=== PATIENT | male | born 1965 | race Caucasian/White ===

== ENCOUNTER → 2016-12-11 | Outpatient (CLI) | payer OTHER | LOC: BMCIMAGING 15:09 | PROVIDERS: ATTEND Internal Medicine Pulmonary Disease | DX: J98.4 Other disorders of lung (principal); R05 Cough ==

== ENCOUNTER → 2017-04-30 | Outpatient (CLI) | payer OTHER | LOC: BMCIMAGING 15:49 | PROVIDERS: ATTEND Internal Medicine | DX: M16.12 Unilateral primary osteoarthritis, left hip (principal) ==

== ENCOUNTER 2018-03-31 21:14 | Emergency (ER) | payer OTHER ==
[2018-03-31] MEDS ORDERED: METOPROLOL SUCCINATE XR 25 MG TAB PO ONE (22:09)
--- NOTE | 2018-03-31 23:03 | EDPHY ---
H & P Stated Complaint: HIGH BLOOD PRESSURE TODAY Time Seen by Provider: 03/31/18 21:52 HPI/ROS: Chief Complaint: High blood pressure HPI: 53-year-old male with a history of hypertension, recently changed his medications from an GABBY-inhibitor to labetalol 200 mg twice a day. Patient states that he woke up this morning and felt well but checked his blood pressure and it was 160 systolic. Over the course today he has been checking it and it his been remaining high. At about 8:00 a.m. This evening it was 200 systolic. At that time he took his evening dose of labetalol. After 30 min his blood pressure was high any called his primary care physician who told him to come to the emergency department. Denies chest pain or shortness of breath. No headache. No nausea or vomiting. Otherwise he has been in his normal state health. ROS: 10 systems were reviewed and were negative except those elements noted in the HPI. PMH: Hypertension Social History: No smoking, occasional alcohol, no recreational drug use Family History: non-contributory Physical Exam: Gen: Awake, Alert, No Distress HEENT: Nose: no rhinorrhea Eyes: PERRLA, EOMI Mouth: Moist mucosa Neck: Supple, no JVD Chest: nontender, lungs clear to auscultation Heart: S1, S2 normal, no murmur Abd: Soft, non-tender, no guarding Back: no CVA tenderness, no midline tenderness Ext: no edema, non-tender Skin: no rash Neuro: CN II-XII intact, Sensation grossly intact, Strength 5/5 in bilateral upper and lower extremities - Personal History Current Tetanus/Diphtheria Vaccine: Unsure Current Tetanus Diphtheria and Acellular Pertussis (TDAP): Unsure - Medical/Surgical History Hx Asthma: No Hx Chronic Respiratory Disease: No Hx Diabetes: No Hx Cardiac Disease: No Hx Renal Disease: No Hx Cirrhosis: No Hx Alcoholism: No Hx HIV/AIDS: No Hx Splenectomy or Spleen Trauma: No Other PMH: HTN, - Social History Smoking Status: Never smoked Constitutional: Initial Vital Signs Temperature (C) 37.0 C 03/31/18 21:21 Heart Rate 64 03/31/18 21:21 Respiratory Rate 18 03/31/18 21:21 Blood Pressure 179/109 H 03/31/18 21:21 O2 Sat (%) 97 03/31/18 21:21 O2 Delivery Mode Room Air Allergies/Adverse Reactions: No Known Allergies Allergy (Unverified 03/31/18 21:26) Home Medications: Medication Instructions Recorded Carbamide Peroxide [Ear Drops] 15 ml OT 03/31/18 Labetalol HCl [Trandate 200 mg (*)] 200 mg PO BID 03/31/18 Medical Decision Making ED Course/Re-evaluation: 53-year-old male with asymptomatic hypertension. I have given him additional dose of labetalol here. Repeat blood pressure now is 163/106. He is well. Plan will be for discharge with follow-up with primary care physician for blood pressure recheck and medication adjustment. - Data Points Medications Given: Discontinued Medications Metoprolol Succinate (Toprol Xl) 25 mg PO EDNOW ONE Stop: 03/31/18 22:10 Last Admin: 03/31/18 22:16 Dose: 25 mg Departure - Departure Disposition: Home, Routine, Self-Care Clinical Impression: Hypertension Condition: Good Instructions: Hypertension (ED) Additional Instructions: Follow up with primary care physician in 1-2 days for blood pressure recheck and medication adjustment. Return to the emergency department for severe headache, chest pain, shortness of breath, fainting, or any other concerns. Referrals: Pino Lee MD [Primary Care Provider] - As per Instructions
[2018-03-31 23:20] VITALS: BP 177/109
== END 2018-03-31 23:41 | disposition home or self-care (01) ==
DX: I10 Essential (primary) hypertension (principal); Z79.899 Other long term (current) drug therapy